=== PATIENT | female | born 1980 | race Caucasian/White ===

== ENCOUNTER 2016-02-14 06:17 | Emergency (ER) | payer MEDICAID ==
[~2016-02-14] VITALS: Ht 152.4 cm; Wt 74.0 kg
[~2016-02-14 06:17] MED LIST: HYDR-902 PO; ONDA4TAB14 PO
[2016-02-14 06:20] VITALS: Ht 152.4 cm; Wt 74.0 kg
[2016-02-14] MEDS ORDERED: morphine 4 MG/ML VIAL IV STA (06:55)
[2016-02-14] MEDS ORDERED: SOD CHLORIDE 0.9% 1,000 ML IV STA (06:55)
[2016-02-14] MEDS ORDERED: ONDANSETRON 4 MG INJ IV STA (06:55)
[2016-02-14] MEDS ORDERED: ACETAMINOPHEN 500 MG TAB PO STA (07:16)
--- NOTE | 2016-02-14 07:22 | ERD ---
ER Documentation Chief Complaint Date/Time DATE: 02/14/16 TIME: 07:19 Chief Complaint left lower abdominal pain x 2 days -n/v s/p csection 02/01/16 HPI 35-year-old female presents with left lower quadrant abdominal pain for approximately 2 days. On January 31 the patient had laparoscopic surgery for ruptured ectopic . The patient had been doing well until 2 days ago. She does note decreased bowel movements. She describes moderate to severe throbbing pain to the left lower quadrant that is intermittent. No diarrhea, no vomiting, no fevers. No vaginal bleeding or discharge noted. ROS All systems reviewed and are negative except as per history of present illness. Medications Home Meds Active Scripts Docusate Sodium* (Colace*) 100 Mg Capsule, 100 MG PO TID Y for CONSTIPATION, # 30 CAP Prov:ROBERTO CARLOS BONE MD 02/14/16 Magnesium Citrate* (Citroma*) 300 Ml Soln, 300 ML PO DAILY Y for CONSTIPATION for 3 Days, #1 BOTTLE Prov:ROBERTO CARLOS BONE MD 02/14/16 Ondansetron (Ondansetron Odt) 4 Mg Tab.rapdis, 4 MG PO Q6H Y for NAUSEA AND/OR VOMITING, #20 TAB Prov:LILY RYDER PA-C 02/01/16 Hydrocodone/Acetaminophen ([place] 10-325 Tablet) 1 Each Tablet, 1 TAB PO Q6H Y for PAIN, #20 TAB Prov:LILY RYDER PA-C 02/01/16 Allergies Allergies: Coded Allergies: No Known Drug Allergies (Verified Allergy, Mild, 02/14/16) PMhx/Soc History of Surgery: Yes (c sect x2) Anesthesia Reaction: No Hx Neurological Disorder: No Hx Respiratory Disorders: No Hx Cardiac Disorders: No Hx Psychiatric Problems: No Hx Miscellaneous Medical Probl: No Hx Alcohol Use: No Hx Substance Use: No Hx Tobacco Use: No Smoking Status: Never smoker FmHx Family History: No diabetes Physical Exam Vitals Vital Signs Date Time Temp Pulse Resp B/P Pulse Ox O2 Delivery O2 Flow Rate FiO2 02/14/16 06:20 97.2 91 18 112/70 96 Physical Exam General: Well developed, well nourished, no acute distress Head: Normocephalic, atraumatic. Eyes: Pupils equally reactive, EOM intact ENT: Moist mucous membranes Neck: Supple, no lymphadenopathy Respiratory: Lungs clear bilaterally, no distress Cardiovascular: RRR, no murmurs, rubs, or gallops Abdominal: Soft, protuberant with focal tenderness to left lower quadrant, mild generalized tenderness, no peritonitis : Deferred MSK: No edema, no unilateral swelling, 5/5 strength Neurologic: Alert and oriented, moving all extremities, normal speech, no focal weakness, no cerebellar signs Skin: No rash Psych: Normal mood Result Diagram: 02/14/16 0708 02/14/16 0708 Results 24 hrs Laboratory Tests Test 02/14/16 07:01 02/14/16 07:08 Urine Bilirubin NEGATIVE Urine Clarity CLEAR Urine Color LT. YELLOW Urine Glucose NEGATIVE% Urine Hemoglobin NEGATIVE Urine Ketones NEGATIVE Urine Leukocyte Esterase NEGATIVE Urine Nitrite NEGATIVE Urine Specific [place] >=1.030 Urine Total Protein NEGATIVE Urine Urobilinogen 0.2 E.U./dL Urine pH 6.0 Activated Partial Thromboplast Time 28.5Sec Anion Gap 18 Basophils # 0.110^3/ul Basophils % 0.5% Beta HCG, Quantitative < 2.4mIU/ml Blood Urea Nitrogen 14mg/dl Calcium Level 9.1mg/dl Carbon Dioxide Level 23mmol/L Chloride Level 107mmol/L Creatinine 0.50mg/dl Eosinophils # 0.410^3/ul Eosinophils % 3.2% Glucose Level 127mg/dl Hematocrit 38.6% Hemoglobin 13.2g/dl INR International Normalized Ratio 0.98 Lymphocytes # 4.810^3/ul Lymphocytes % 41.6% Mean Corpuscular Hemoglobin 30.4pg Mean Corpuscular Hemoglobin Concent 34.2g/dl Mean Corpuscular Volume 89.1fl Mean Platelet Volume 8.0fl Monocytes # 0.810^3/ul Monocytes % 7.0% Neutrophils # 5.510^3/ul Neutrophils % 47.7% Nucleated Red Blood Cells # 0.010^3/ul Nucleated Red Blood Cells % 0.0/100WBC Platelet Count 12473^3/UL Potassium Level 4.0mmol/L Prothrombin Time 13.0Sec Prothrombin Time Ratio 1.0 Red Blood Count 4.3410^6/ul Red Cell Distribution Width 13.0% Sodium Level 144mmol/L White Blood Count 11.510^3/ul Current Medications Medications (Trade) Dose Ordered Sig/Reddy Route PRN Reason Start Time Stop Time Status Last Admin Dose Admin Sodium Chloride (NS) 1,000 ml @ 1,000 mls/hr Q1H STAT IV 02/14/16 06:55 02/14/16 07:54 DC 02/14/16 07:20 Morphine Sulfate (morphine) 4 mg ONCE STAT IV 02/14/16 06:55 02/14/16 06:56 DC Ondansetron HCl (Zofran Inj) 4 mg ONCE STAT IV 02/14/16 06:55 02/14/16 06:56 DC 02/14/16 07:20 Acetaminophen (Tylenol Tab) 1,000 mg ONCE STAT PO 02/14/16 07:16 02/14/16 07:17 DC 02/14/16 07:23 IV Flush 10 ml 10 ml STK-MED ONCE .ROUTE 02/14/16 08:09 02/14/16 08:10 DC 02/14/16 08:25 Sodium Chloride (NS) 100 ml @ ud STK-MED ONCE .ROUTE 02/14/16 08:09 02/14/16 08:10 DC 02/14/16 08:25 Iohexol (Omnipaque 300mg/ ml) 150 ml STK-MED ONCE .ROUTE 02/14/16 08:09 02/14/16 08:10 DC 02/14/16 08:26 Procedures/MDM EKG, MONITORS, & DIAGNOSTIC IMAGING: CT abdomen and pelvis: IMPRESSION: Bilateral adnexa are prominent. No discrete lesion is identified in the right adnexa to correlate with the 2.2 cm echogenic lesion seen on recent pelvic ultrasounds which was identified as a possible ectopic in those studies. There is no evidence of significant mesenteric stranding or fluid in the right adnexa to suggest rupture. 3 cm fascial defect in the midline of the lower abdomen with herniated mesenteric fat which demonstrates minimal stranding, possibly due to mild inflammation. Clinical correlation for tenderness to palpation in the lower abdominal midline is recommended. 1.7 cm likely Bartholin gland cyst in the left labia. Possible mild fatty infiltration of the liver. Normal appendix. Scattered colonic diverticula without evidence of diverticulitis. LAB INTERPRETATION: Normal white count MEDICAL DECISION MAKING: The patient is approximately 2 weeks postop from laparoscopic surgery secondary to ruptured ectopic . She is focal left lower quadrant abdominal pain. This is possibly related to normal postoperative changes, versus constipation. However the patient is at risk for hematoma, seroma. No fever to suggest abscess. Regardless, the patient is postsurgical would benefit from CT imaging of the abdomen and pelvis. Very low clinical concern for retained products of conception given that the patient has been well until 2 days ago. ER COURSE: The patient continues to be well-appearing, she refused morphine, Tylenol improved her symptoms. Her laboratory testing is reassuring. Her CT imaging shows normal postoperative changes, no evidence of complication or abscess or hematoma. Repeat abdominal exam is improved. This is possibly related to constipation versus normal postoperative changes. I was able speak to Dr. Joel, on-call for [employer]. We reached out to Dr. Andre with no callback. We discussed the case and he feels this is appropriate to follow-up with Dr. Andre's office I kept the patient and/or family informed of laboratory and diagnostic imaging results throughout the emergency room course. DISPOSITION PLAN: We discussed follow up with the patient's primary care doctor within 24 to 48 hours as needed. We also discussed return to the emergency room for worsening symptoms or worsening condition. Discharge Medications: Colace, mag citrate Departure Diagnosis: Primary Impression: Abdominal pain Abdominal location: left lower quadrant Qualified Code: R10.32 - Left lower quadrant pain Additional Impression: Constipation Constipation type: unspecified constipation type Qualified Code: K59.00 - Constipation, unspecified constipation type Condition: Stable ROBERTO CARLOS BONE MD Feb 14, 2016 07:22
[2016-02-14 07:43] LABS: BASOPHIL # 0.1 10^3/ul (0.0-0.1); BASOPHILS % 0.5 % (0.0-2.0); EOSINOPHILS # 0.4 10^3/ul (0.0-0.5); EOSINOPHILS % 3.2 % (0.0-7.0); HEMATOCRIT 38.6 % (37.0-47.0); HEMOGLOBIN 13.2 g/dl (12.0-16.0); LYMPHOCYTES # 4.8 10^3/ul (0.8-2.9); LYMPHOCYTES % 41.6 % (15.0-51.0); MEAN CORPUSCULAR HEMOGLOBIN 30.4 pg (29.0-33.0); MEAN CORPUSCULAR HGB CONC 34.2 g/dl (32.0-37.0); MEAN CORPUSCULAR VOLUME 89.1 fl (82.0-101.0); MONOCYTE # 0.8 10^3/ul (0.3-0.9); NEUTROPHIL # 5.5 10^3/ul (1.6-7.5); NEUTROPHILS % 47.7 % (39.0-77.0); PLATELET COUNT 444 10^3/UL (140-440); RED BLOOD COUNT 4.34 10^6/ul (4.20-5.40); UNCORRECTED WBC 11.5 10^3/ul (4.8-10.8); WHITE BLOOD COUNT 11.5 10^3/ul (4.8-10.8)
[2016-02-14 07:44] LABS: CONDITION 1
[2016-02-14 07:48] LABS: INR 0.98; PARTIAL THROMBOPLASTIN TIME 28.5 Sec (25.0-35.0)
[2016-02-14 07:52] LABS: CREATININE 0.5 mg/dl (0.44-1.00)
[2016-02-14 07:53] LABS: CALCIUM 9.1 mg/dl (8.4-10.2)
[2016-02-14 08:02] LABS: ADD UMIC NO; URINE BILIRUBIN (Dip) NEGATIVE (NEGATIVE); URINE BLOOD (Dip) NEGATIVE (NEGATIVE); URINE COLOR LT. YELLOW (YELLOW); URINE GLUCOSE (Dip) NEGATIVE (NEGATIVE); URINE KETONES (Dip) NEGATIVE (NEGATIVE); URINE LEUKOCYTE ESTERASE (Dip) NEGATIVE (NEGATIVE); URINE NITRITE (Dip) NEGATIVE (NEGATIVE); URINE TOTAL PROTEIN (Dip) NEGATIVE (NEGATIVE); URINE UROBILINOGEN (Dip) 0.2 E.U./dL (0.1-1.0)
[2016-02-14] MEDS ORDERED: SOD CHLORIDE 0.9% 100 ML ONE (08:09)
[2016-02-14] MEDS ORDERED: IOHEXOL 300MG/ML 150 ML BTL ONE (08:09)
--- NOTE | 2016-02-14 08:41 | RADRPT ---
PROCEDURE: CT abdomen and pelvis with contrast and with 3-D reconstructions CLINICAL INDICATION: Patient experiencing Abdominal Pain. TECHNIQUE: CT scan of the abdomen and pelvis with intravenous contrast was performed on a multisli ce CT scanner. 3-D sagittal and coronal reformatted images were obtained from the axial source image s. DLP 800.61 mGycm CTDIvol 14.19 mGy COMPARISON: Obstetrical ultrasound from 02/01/2016 FINDINGS: The visualized lung bases are unremarkable. The liver demonstrates mildly decreased density, possibly due to mild fatty infiltration. There are no focal liver lesions. There is no intrahepatic or extrahepatic biliary ductal dilatation. The ga llbladder is within normal limits. The spleen, pancreas, and adrenal glands are within normal limits. The kidneys are symmetric and without focal lesions. There are no renal calculi. There is no obstruc tive uropathy. There are no dilated or thickened loops of bowel. The appendix is within normal limits. There are a few scattered colonic diverticula without evidence of diverticulitis. The aorta is within normal limits. There are no enlarged mesenteric, periaortic, or retroperitoneal lymph nodes. The bladder is within normal limits. Bilateral adnexa are prominent. There is no free air. There i s no free fluid. There is a 1.7 x 1.0 cm fluid collection in the left labia which is likely a Tana umm gland cyst. There are no enlarged intrapelvic or inguinal lymph nodes. There is a 3 cm fascial defect in the midline of the lower abdomen (axial image 154) with herniated mesenteric fat which demonstrates minimal stranding which appears to extend to the right pericolic g utter with areas mild thickening of the fascia inferiorly. IMPRESSION: Bilateral adnexa are prominent. No discrete lesion is identified in the right adnexa to correlate w ith the 2.2 cm echogenic lesion seen on recent pelvic ultrasounds which was identified as a possible ectopic in those studies. There is no evidence of significant mesenteric stranding or flu id in the right adnexa to suggest rupture. 3 cm fascial defect in the midline of the lower abdomen with herniated mesenteric fat which demonstr ates minimal stranding, possibly due to mild inflammation. Clinical correlation for tenderness to p alpation in the lower abdominal midline is recommended. 1.7 cm likely Bartholin gland cyst in the left labia. Possible mild fatty infiltration of the liver. Normal appendix. Scattered colonic diverticula without evidence of diverticulitis. RPTAT: EE Carl Cantor Physician Date Time Electronically viewed and signed by Carl Cantor Physician on 02/14/2016 08:41 RA/
[2016-02-14] MEDS ORDERED: DOCU-144 PO (08:54)
[2016-02-14] MEDS ORDERED: CITROMA PO (08:54)
[2016-02-14 09:07] VITALS: BP 110/64; PULSE 85; RESP 19; TEMP 98.2
== END 2016-02-14 09:12 | disposition home or self-care (01) ==
LOC: E/R 06:17
DX: R10.32 Left lower quadrant pain (principal); R40.2142 Coma scale, eyes open, spontaneous, at arrival to emergency department; R40.2362 Coma scale, best motor response, obeys commands, at arrival to emergency department; R40.2252 Coma scale, best verbal response, oriented, at arrival to emergency department; K59.00 Constipation, unspecified
CPT/HCPCS: 74177; 80048; 81003; 84702; 85025; 85610; 85730; J2405; J7030; Q9967; Z7610; 36415; 96374